=== PATIENT | female | born 1945 | race Caucasian/White ===

== ENCOUNTER 2022-12-27 17:35 | Inpatient (IN) | payer MEDICARE, SELFPAY ==
[2022-12-27] VITALS (24 sets, daily range): BP systolic 90–112; BP diastolic 41–64; PULSE 77–96; RESP 15–23; TEMP 36.6–37.1; O2SAT 90–97
--- NOTE | 2022-12-27 18:06 | W.ED.GENAD ---
Discharge Plan Disposition Patient Disposition: Admit to [facility] Condition: Stable Discharge Details Clinical Impression: Urinary tract infection Admit Date/Time: 12/27/22 21:01 Admit Provider: Hari Floyd Attending Provider: Hari Floyd Primary Care Provider: Melani Riley ED Provider: Shellie Pablo Discharge Data Discharge Date/Time-TO BE ENTERED AT DEPARTURE: 12/27/22 22:19 Medical Decision Making Presentation concerning for GI bleed. She has been given Protonix IV push liter of fluid will obtain routine lab. She was noted to have dark black stools which were heme positive. Did present to triage hypotensive and tachycardic. She denies chest pain or shortness of breath. Will obtain CBC CMP type and screen coags. We will give 1 L of normal saline keep her monitored while awaiting studies. Labs returned and show an elevated white count at 28,000 and hemoglobin of 14 Despite fluids she remains hypotensive with a systolic blood pressure in the 90s. There have been no bloody stools since her arrival and now I question whether or not she is septic possibly. I will add chest x-ray urinalysis lactic acid blood cultures to evaluate for and infection. Labs return and urine does show concern for infection. She is given ceftriaxone 2 g IV piggyback. Her case is discussed with hospitalist services and she will be admitted to the medical surgical unit for further treatment and evaluation. A repeat hemoglobin is 13, which most likely is dilutional as she has received 2 L of IV fluid. Medical Records Medical records reviewed: Yes I reviewed the patient's medical records. Lab Data Lab results reviewed: Yes I reviewed the patient's lab results. HPI General Mode of arrival: wheelchair. Date/Time Provider Initiated Documentation: 12/27/22 17:55. Limitations to Documentation: no limitations. Information obtained by: patient and family (Daughter). HPI Narrative: Is a 77-year-old female patient with a history of of DVT on chronic anticoagulation with a history of recent hospitalization at [facility] after she had multiple falls at home. Reportedly has a L4 compression fracture with right-sided radiculopathy. Her hospitalization at [facility] also included congestive heart failure with bilateral lower extremity edema. She was unable to be safely discharged home so has been at [facility] and rehab for the past week. Was rehabbing okay and then today reported dark stool that was heme positive. Hemodynamically she was initially stable at the rehab but on arrival to the emergency department she was found to be hypotensive with a systolic of 90 and a heart rate over 100. She also was found to be hypoxic with a room air sat in the high 80s. She denies any respiratory complaints cough shortness of breath no fevers no recent other illness Related Data Home Medications Medication Instructions Recorded Confirmed José Low Dose Aspirin 81 mg 81 mg PO DAILY 12/22/15 07/09/22 tablet,delayed release (aspirin) Humalog KwikPen Insulin 100 65 u subcut BID 12/22/15 07/09/22 unit/mL subcutaneous (insulin lispro) Lantus Solostar U-100 Insulin 100 60 u subcut DAILY 12/22/15 07/09/22 unit/mL (3 mL) subcutaneous pen (insulin glargine) Lasix 40 mg tablet (furosemide) 40 mg PO DAILY 12/22/15 07/09/22 ProAir HFA 90 mcg/actuation 2 puff inhalation Q6H PRN 12/22/15 07/09/22 aerosol inhaler (albuterol sulfate) Vitamin D3 Complete 18 mg iron-800 1 ea PO 12/22/15 07/09/22 mcg-150 mg tablet ([id number]-ud-gsbz-FA-herbal cmplx#190) levothyroxine 125 mcg tablet 125 mcg PO DAILY 12/22/15 07/09/22 metoprolol tartrate 50 mg tablet 75 mg PO DAILY 12/22/15 07/09/22 multivitamin 1 ea PO 12/22/15 07/09/22 simvastatin 40 mg tablet 40 mg PO DAILY 12/22/15 07/09/22 spironolactone 25 mg tablet 25 mg PO DAILY 12/22/15 07/09/22 warfarin 4 mg tablet 4 mg PO DAILY 12/22/15 07/09/22 blood sugar diagnostic (Accu-Chek #10 ea 03/05/21 07/09/22 Karo Plus test strips) blood-glucose meter #1 ea 03/05/21 07/09/22 insulin syringe-needle U-100 1 mL #10 ea 03/05/21 07/09/22 30 gauge x 1/2 (BD Insulin Syringe Ultra-Fine) fluticasone furoate 100 1 inh inhalation DAILY PRN 05/01/21 07/09/22 mcg-vilanterol 25 mcg/dose inhalation powder (Breo Ellipta) fluticasone propionate 50 50 mcg NS BID PRN 05/01/21 07/09/22 mcg/actuation nasal spray,suspension Allergies Allergy/AdvReac Type Severity Reaction Status Date / Time aspirin [From Percodan] Allergy Unverified 07/09/22 14:00 codeine Allergy Unverified 07/09/22 14:00 metformin HCl Allergy Unverified 07/09/22 14:00 [From Glucophage] nicotine Allergy Unverified 07/09/22 14:00 oxycodone HCl [From Percodan] Allergy Unverified 07/09/22 14:00 oxycodone terephthalate Allergy Unverified 07/09/22 14:00 [From Percodan] pioglitazone HCl [From Actos] Allergy Unverified 07/09/22 14:00 General Stated Complaint: GI Bleed BERTIN: 2 Review of Systems All systems reviewed & are unremarkable except as noted in HPI and below 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, 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, 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, er/pr positive, HER negatigve, post partial nastectomy 02/02/09 and AI therapy x5 years started 03/27-left mammo abn 06/01, benign bx 07/30-completed 5 yr of femara Bronchitis Congestive heart failure Depressive disorder Diarrhea Hearing impairment Neck pain Obesity osteoporosis, generalized Tobacco abuse Surgical History Amputation Left great toe, partial amputation 2005 Angioplasty Appendectomy early 1969's Cholecystectomy Extraction of cataract History of colonoscopy History of lumpectomy of left breast 2008 Partial Mastectomy Stent Tonsillectomy and adenoidectomy x2, age 3 and age 10 - tonsils grew back after first procedure Family History Father Diabetes Mother Hypertension Diabetes Social History Smoking/Tobacco Use Status: Current-Occasional Tobacco Type: cigarettes Smoking risk assessment performed?: Yes Alcohol Intake: never Drug use: Never Household members: family Housing: other Number of Children: 1 What is your relationship status?: Panel score (0-1 are the most socially isolated patients): 0 Exam Const General: cooperative, frail appearing and ill appearing Nutritional Appearance: overweight Orientation: alert, awake and oriented x3 HENMT Head: normal to inspection, normocephalic and atraumatic Mouth: moist mucous membranes abnormal (dry) Neck Neck: no JVD Chest Chest: normal inspection of the chest Resp Effort & Inspection: normal respiratory effort Auscultation: diminished lung sounds (bases) bilaterally Cardio Rate: tachycardic Rhythm: regular rhythm GI Inspection: normal to inspection and obesity Palpation: soft, not firm, no guarding and no masses Skin General skin exam: no rashes or lesions noted Neuro General: patient alert, patient awake, patient oriented x3 and no focal motor deficits Extrem General: normal to inspection and full ROM Course Vital Signs Vital signs: Vital Signs Temperature 37.1 C 12/27/22 17:48 Pulse 95 H 12/27/22 17:48 Respiratory Rate 18 12/27/22 17:48 Blood Pressure 90/47 L 12/27/22 17:48 Pulse Oximetry 92 12/27/22 17:48 Temperature 37.1 C 12/27/22 17:48 Temperature Source Skin 12/27/22 17:48 Pulse 95 H 12/27/22 17:48 Respiratory Rate 18 12/27/22 17:48 Blood Pressure 90/47 L 12/27/22 17:48 Blood Pressure Position Sitting 12/27/22 17:48 Pulse Oximetry 92 12/27/22 17:48 Oxygen Delivery Method Room Air 12/27/22 17:48 Oxygen Flow Rate 0 12/27/22 17:48 Pain Level 0 12/27/22 17:48
[2022-12-27] MEDS: Pantoprazole 40 MG VIAL 80 MG IVP (18:22)
[2022-12-27] MEDS: Normal Saline 1,000 ML 1000 ML IV (18:22)
[2022-12-27 18:34] LABS: Abs Immature Grans 0.13 10^3/uL (0.0-0.06); HCT 41.1 % (36.0-46.0); HGB 13.5 g/dL (11.2-15.7); Immature Grans % 0.5; MCH 28.5 pg (27.0-33.0); MCHC 32.8 % (32.0-36.0); MCV 87 fL (80-95); MPV 9.7 fL (8.0-11.0); RBC 4.74 10^6/uL (3.93-5.22); RDW 15.9 % (11.7-14.6)
[2022-12-27 18:38] LABS: WBC 28.09 10^3/uL (4.4-10.8)
[2022-12-27 18:48] LABS: Absolute Lymphocyte Count 2.81 10^3/uL (1.2-3.4); Absolute Monocyte Count 1.12 10^3/uL (0.1-0.8); Absolute Neutrophil Count 24.16 10^3/uL (1.2-6.7); Bands % 1
[2022-12-27 18:49] LABS: Diff Comment Manual Differential; Platelet Count 983 10^3/uL (130-400); RBC Morphology Normal
[2022-12-27 18:56] LABS: Prothrombin Time 30.2 sec (9.3-11.0)
--- NOTE | 2022-12-27 19:00 | DI.RAD_ITS ---
Exam(s) XR CHEST 2V PA LATERAL EXAM: XR CHEST 2V PA LATERAL CLINICAL HISTORY: hypoxia TECHNIQUE: 2D digital imaging was performed. COMPARISON: No exams were available for comparison FINDINGS: HEART: Normal size. Aorta: Not dilated. PULMONARY VASCULATURE: Normal. LUNGS: Mild fibrotic changes, otherwise clear. PLEURAL SPACE: No pleural effusion or pneumothorax. BONE:Unremarkable for age. IMPRESSION: No acute abnormality. DATA REPOSITORY: RADIATION DOSE DELIVERED:
[2022-12-27 19:04] LABS: ALT 13 U/L (14-59); AST 14 U/L (15-37); Alkaline Phosphatase 86 U/L (46-116); Anion Gap 9.4 mmol/L (3-11); Bilirubin, Total 0.3 mg/dL (0.2-1.0); CO2 27.6 mmol/L (21.0-32.0); CREATININE 1.9 mg/dL (0.55-1.02); Calcium 8.7 mg/dL (8.5-10.1); Chloride 97 mmol/L (98-107); Estimated GFR 26.53 (mL/min/1.73m2); Glucose 138 mg/dL (74-106); Magnesium 2.8 mg/dL (1.8-2.4); Potassium 4.7 mmol/L (3.5-5.1); Sodium 134 mmol/L (136-145); Total Protein 6.9 g/dL (6.4-8.2)
[2022-12-27 19:06] LABS: BUN 109 mg/dL (7-18)
--- NOTE | 2022-12-27 19:07 | NUR.NOTE ---
Nursing Note: Report to Rhiannon SOLOMON
--- NOTE | 2022-12-27 19:33 | DI.VRAD_ITS ---
PROCEDURE INFORMATION: Exam: XR Chest Exam date and time: 12/27/2022 7:13 PM Age: 77 years old Clinical indication: Other: Hypoxia TECHNIQUE: Imaging protocol: Radiologic exam of the chest. Views: 2 views. COMPARISON: No relevant prior studies available. FINDINGS: Tubes, catheters and devices: Monitoring wires noted. Lungs: Lungs are mildly hyperaerated. No consolidation. No vascular congestion. Pleural spaces: Unremarkable. No pleural effusion. No pneumothorax. Heart/Mediastinum: Unremarkable. No cardiomegaly. Bones/joints: Moderate arthropathy noted in the right shoulder. Degenerative changes are present in the spine. Bone mineralization appears low. IMPRESSION: No acute cardiopulmonary abnormality. Suspect chronic lung disease. Dictated and Authenticated by: Raj Osman MD. Ordering:MELL Hensley MD
[2022-12-27 20:28] LABS: Bilirubin Negative (Negative); Blood Large (Negative); Clarity Cloudy (Clear); Glucose Negative (Negative); Ketones Negative (Negative); Leukocyte Esterase Large (Negative); Nitrite Negative (Negative); Specific Gravity 1.015 (1.005-1.025); Urobilinogen 0.2 mg/dL (Up to 0.2); pH 5.5 (5-8)
[2022-12-27 20:34] LABS: Bacteria Moderate HPF (Negative); C & S Indicated? Yes; Casts Negative LPF (Negative); Crystals Negative HPF (Negative); Epithelial Cells Few HPF (Negative); Mucus Negative (Negative)
[2022-12-27 21:11] LABS: Lactate 0.8 mmol/L (0.6-1.4)
--- NOTE | 2022-12-27 21:13 | W.PM.HP.N ---
Date of service: 12/28/22 Time of Service: 00:00 Assessment and Plan Assessment and plan (1) Urinary tract infection: Status: Acute Assessment and plan: Admission diagnosis UTI, but I am not totally convinced. I agree with ceftriaxone if we can't find another reason for the elevated WBC until cultures return, but truthfully she has no UTI symptoms. (2) Diarrhea: Status: Acute Assessment and plan: She is at high risk for c dif given clindamycin, this would explain the high WBC and platelets. Interestingly, both were trending up while she was still at [facility] on 12/19 labs. C dif toxin assay ordered. (3) GI bleed: Status: Chronic Assessment and plan: SHe has two normal h/h since arriving, suggesting she has not lost significant blood. However heme + blackish stool and elevated BUN/cr ratio still raise concern of UGI bleed. Continue to monitor. At this point, I am holding warfarin but I will not reverse it unless h/h drops more significantly. (4) Hypothyroidism: Status: None Assessment and plan: Her TSH was low with Free T4 still within normal range at [facility]. Her levothyroxine was not titrated. Typically I would decrease this, but likely prodent to defer to outpatient when she isn't sick. (5) Diastolic heart failure: Status: Acute Assessment and plan: Euvolemic currently, CXR not c/w CHF. Continue outpatient diuresis. (6) Diabetes mellitus with neurological manifestations: Status: None Assessment and plan: A1c was 6.0 per [facility] d/c summary. I cut back the insulin dosing, particularly the rapid insulin was high in proportion to basal. (7) Coronary artery disease: Status: None Assessment and plan: No active symptoms of chest pain. COntinue outpatient meds. I'm not sure why she is on simvastatin rather than high intensity, but will defer to outpatient. (8) Acute on chronic renal insufficiency: Status: Acute Assessment and plan: Her creatinine on 8.3 was 1.4. Related to an acute infection? Will monitor renal function and urine output. (9) ALAN (obstructive sleep apnea): Status: Chronic Assessment and plan: home BiPAP (10) DVT prophylaxis: Status: Acute Assessment and plan: mechanical given concern for GI bleed. History of Present Illness History of Present Illness Chief Complaint: black stool, heme positive Narrative: 77 yo F anticoagulated on warfarin for history of DVT, DM, ALAN, CAD, who was in rehab at [facility] after a recent admission for HFpEF and lower extremity cellulitis who was brought to the ED by her daughter after she had a dark stool that was heme positive. She states she has has loose stools 4-5 day for the past 2-3 days with some leakage requiring a diaper. No fever/chills. She has an appetite but has not been eating because the food was not appealing. She denies any dysuria, urinary frequency, or urine incontinence. She was otherwise feeling well. She was admitted 12/06 - 12/20/22 at [facility] in [place], [place]. She was treated for LE cellulitis with clindamycin and CHF, with echocardiogram showing a preserved ejection fraction of 60%. Review of Systems Constitutional Constitutional: Denies anorexia, Denies chills, Denies fever(s), Reports lethargy and Denies weakness Eyes Eyes: Denies change in vision and Denies irritation ENT Ears, Nose, Mouth, and Throat: Denies dizziness, Denies nasal congestion, Denies nasal discharge and Denies sore throat Cardiovascular Cardiovascular: Denies palpitations and Denies orthopnea Respiratory Respiratory: Reports cough (a few days of dry cough, mild), Denies excessive phlegm production and Denies wheezing Gastrointestinal Gastrointestinal: Denies abdominal pain, Denies heartburn, Denies nausea and Denies vomiting Genitourinary Genitourinary: Denies hematuria, Denies dysuria and Denies urinary incontinence Musculoskeletal Comments: right leg hurts since fall before last admission Integumentary/Breasts Skin/Breast: Denies rash and Denies skin ulcer Neurologic Neurologic: Denies confusion, Denies dizziness, Denies sensory deficit and Denies weakness Psychiatric Psychiatric: Denies confusion and Denies mood swings Endocrine Endocrine: Denies palpitations Hematologic/Lymphatic Hematologic/Lymphatic: Denies easy bleeding Allergic/Immunologic Allergic/Immunologic: Denies wheezing 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, 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, 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, er/pr positive, HER negatigve, post partial nastectomy 02/02/09 and AI therapy x5 years started 03/27-left mammo abn 06/01, benign bx 07/30-completed 5 yr of femara Bronchitis Congestive heart failure Depressive disorder Diarrhea Hearing impairment Neck pain Obesity osteoporosis, generalized Tobacco abuse Surgical History Amputation Left great toe, partial amputation 2005 Angioplasty Appendectomy early Cholecystectomy Extraction of cataract History of colonoscopy History of lumpectomy of left breast 2007 Partial Mastectomy Stent Tonsillectomy and adenoidectomy x2, age 3 and age 10 - tonsils grew back after first procedure Family History Father Diabetes Mother Hypertension Diabetes Social History Smoking/Tobacco Use Status: Current-Occasional Tobacco Type: cigarettes Smoking risk assessment performed?: Yes Alcohol Intake: never Drug use: Never Household members: family Housing: other Number of Children: 1 What is your relationship status?: Panel score (0-1 are the most socially isolated patients): 0 Meds Allergies and Home Medications Allergies Allergy/AdvReac Type Severity Reaction Status Date / Time aspirin [From Percodan] Allergy Unverified 07/09/22 14:00 codeine Allergy Unverified 07/09/22 14:00 metformin HCl Allergy Unverified 07/09/22 14:00 [From Glucophage] nicotine Allergy Unverified 07/09/22 14:00 oxycodone HCl [From Percodan] Allergy Unverified 07/09/22 14:00 oxycodone terephthalate Allergy Unverified 07/09/22 14:00 [From Percodan] pioglitazone HCl [From Actos] Allergy Unverified 07/09/22 14:00 Home Medications Medication Instructions Recorded Confirmed Type José Low Dose Aspirin 81 mg 81 mg PO DAILY 12/22/15 07/09/22 History tablet,delayed release (aspirin) Humalog KwikPen Insulin 100 65 u subcut BID 12/22/15 07/09/22 History unit/mL subcutaneous (insulin lispro) Lantus Solostar U-100 Insulin 100 60 u subcut DAILY 12/22/15 07/09/22 History unit/mL (3 mL) subcutaneous pen (insulin glargine) Lasix 40 mg tablet (furosemide) 40 mg PO DAILY 12/22/15 07/09/22 History ProAir HFA 90 mcg/actuation 2 puff inhalation Q6H PRN 12/22/15 07/09/22 History aerosol inhaler (albuterol sulfate) Vitamin D3 Complete 18 mg iron-800 1 ea PO 12/22/15 07/09/22 History mcg-150 mg tablet (da-vo-xych-FA-herbal cmplx#190) levothyroxine 125 mcg tablet 125 mcg PO DAILY 12/22/15 07/09/22 History metoprolol tartrate 50 mg tablet 75 mg PO DAILY 12/22/15 07/09/22 History multivitamin 1 ea PO 12/22/15 07/09/22 History simvastatin 40 mg tablet 40 mg PO DAILY 12/22/15 07/09/22 History spironolactone 25 mg tablet 25 mg PO DAILY 12/22/15 07/09/22 History warfarin 4 mg tablet 4 mg PO DAILY 12/22/15 07/09/22 History blood sugar diagnostic (Accu-Chek #10 ea 03/05/21 07/09/22 History Karo Plus test strips) blood-glucose meter #1 ea 03/05/21 07/09/22 History insulin syringe-needle U-100 1 mL #10 ea 03/05/21 07/09/22 History 30 gauge x 1/2 (BD Insulin Syringe Ultra-Fine) fluticasone furoate 100 1 inh inhalation DAILY PRN 05/01/21 07/09/22 History mcg-vilanterol 25 mcg/dose inhalation powder (Breo Ellipta) fluticasone propionate 50 50 mcg NS BID PRN 05/01/21 07/09/22 History mcg/actuation nasal spray,suspension Exam Narrative Exam Narrative: GEN: Alert and oriented, pleasant and cooperative, hard of hearing. She gives a linear history. No acute distress at rest. HEENT: Head atraumatic. Conjunctiva clear, no icterus. PEERL, EOMI. no rhinorrhea. MMM, OP benign. Neck is supple with no masses or lymphadenopathy, trachea midline LUNGS: CTAB with normal effort CV: RRR with no murmurs, gallops, or rubs. ABD: +BS, soft, NT/ND EXT: no cyanosis, clubbing. Trace juan a edema more on left. MSK: No joint redness or swelling NEURO: CN 2-12 grossly intact. Normal movement of 4 extremities. Normal speech and coordination SKIN: No rashes or open wounds. hyperpigmented in shins. PSYCH: normal mood and affect Results Imaging Chest x-ray: report reviewed (No acute cardiopulmonary abnormality. Suspect chronic lung disease.) Labs 12/27/22 18:27 12/27/22 18:27 Labs: Laboratory Results - last 24 hr 12/27/22 12/27/22 12/27/22 18:27 18:27 18:27 WBC 28.09 H* RBC 4.74 Hgb 13.5 Hct 41.1 MCV 87 MCH 28.5 MCHC 32.8 RDW 15.9 H Plt Count 983 H* MPV 9.7 Immature Gran % 0.5 Neutrophils % 85.0 Band Neutrophils % 1 Lymphocytes % 10.0 Monocytes % 4.0 Eosinophils % 0.0 Basophils % 0.0 Nucleated RBC % 0.0 Absolute Neutrophils 24.16 H Absolute Lymphocytes 2.81 Absolute Monocytes 1.12 H Absolute Eosinophils 0.00 Absolute Basophils 0.00 RBC Morphology Normal PT INR VBG Lactate Sodium 134 L Potassium 4.7 Chloride 97 L Carbon Dioxide 27.6 Anion Gap 9.4 BUN 109 H* Creatinine 1.9 H Est GFR (CKD-EPI 2020) 26.53 Glucose 138 H Calcium 8.7 Magnesium 2.8 H Total Bilirubin 0.3 AST 14 L ALT 13 L Alkaline Phosphatase 86 Total Protein 6.9 Albumin 3.0 L Urine Color Urine Clarity Urine pH Ur Specific [place] Urine Protein Urine Ketones Urine Blood Urine Nitrite Urine Bilirubin Urine Urobilinogen Ur Leukocyte Esterase Urine RBC Urine WBC Ur Epithelial Cells Urine Crystals Urine Bacteria Urine Casts Urine Mucus Ur Culture Indicated? Urine Glucose Patient ABO/Rh O Positive Antibody Screen NEGATIVE 12/27/22 12/27/22 12/27/22 18:27 20:23 21:00 WBC RBC Hgb Hct MCV MCH MCHC RDW Plt Count MPV Immature Gran % Neutrophils % Band Neutrophils % Lymphocytes % Monocytes % Eosinophils % Basophils % Nucleated RBC % Absolute Neutrophils Absolute Lymphocytes Absolute Monocytes Absolute Eosinophils Absolute Basophils RBC Morphology PT 30.2 H INR 3.0 H VBG Lactate 0.8 Sodium Potassium Chloride Carbon Dioxide Anion Gap BUN Creatinine Est GFR (CKD-EPI 2020) Glucose Calcium Magnesium Total Bilirubin AST ALT Alkaline Phosphatase Total Protein Albumin Urine Color Yellow Urine Clarity Cloudy Urine pH 5.5 Ur Specific [place] 1.015 Urine Protein Negative Urine Ketones Negative Urine Blood Large H Urine Nitrite Negative Urine Bilirubin Negative Urine Urobilinogen 0.2 Ur Leukocyte Esterase Large H Urine RBC 5-10 H Urine WBC 5-10 Ur Epithelial Cells Few Urine Crystals Negative Urine Bacteria Moderate Urine Casts Negative Urine Mucus Negative Ur Culture Indicated? Yes Urine Glucose Negative Patient ABO/Rh Antibody Screen Last Vital Signs Temp 37.1 C 12/27/22 17:48 Pulse 95 H 12/27/22 17:48 Resp 18 12/27/22 17:48 BP 90/47 L 12/27/22 17:48 Pulse Ox 92 12/27/22 17:48 Time Spent Time spent with Patient: 55-74 minutes Time was spent: preparing to see the patient(eg.review tests), obtaining and/or reviewing separately otained hiistory, ordering medications,tests, procedures, referring, communicating with other health home health caregiver, indepentently interpreting results and counseling the patient
[2022-12-27] MEDS: cefTRIAXone 2 GM/50 ML BAG IVPB (21:43)
[2022-12-27 21:45] LABS: Procalcitonin < 0.1 ng/mL
--- NOTE | 2022-12-28 | DI.CT_ITS ---
Exam(s) CT RENAL COLIC WO EXAM: CT RENAL COLIC WO CLINICAL HISTORY: UTI, leukocytosis. TECHNIQUE: Imaging Protocol: Axial computed tomography images with coronal and sagittal reformatted images were created and reviewed. CONTRAST MATERIAL: Noncontrast COMPARISON: CR,XR XR CHEST 2V PA LATERAL from 12/27/2022 FINDINGS: ABDOMEN: Lung Bases: Normal where visualized. Mitral annular calcifications. Coronary artery calcifications . Liver: Normal attenuation. No measurable mass. Gallbladder and biliary tract: Status post cholecystectomy. No radiodense calculus or dilation. Pancreas: Normal density, no calcifications or inflammatory process. Spleen: Normal. Kidneys: Normal size, contour and axis. Nonobstructing stone lower pole left kidney. No obstructive uropathy. No masses seen. Adrenal glands: No masses seen. Abdominal Aorta: Abdominal portion non-dilated. Aorta and branch vessels heavily calcified. Soft tissues: Multiple calcifications and increased density seen within the left breast. Skin thicke haresh noted inferiorly. Clinical correlation recommended as to prior treatment for breast cancer. Ma mmography recommended if not previously performed recently elsewhere. Small fatty containing umbilical hernia. PELVIS: Bladder: Symmetric distention, no gross wall thickening. No evidence of stones.No visible mass. Bowel: No obstruction or bowel wall thickening. Reproductive: Unremarkable. Peritoneal cavity: No ascites, collection or mesenteric inflammatory response. Bones: Moderate compression fracture of L3. Mild retropulsion. No aggressive bony lesions. IMPRESSION: Left breast mass with calcifications in skin thickening, highly suspicious for malignancy. Mammograp hy recommended. Nonobstructing stone lower pole left kidney. Moderate L3 compression fracture. RADIATION DOSE DELIVERED: Total DLP DATA REPOSITORY: All CT scans at this facility are submitted to the National Radiology Data Registry (NRDR) Dose Index Registry (DIR) with the [employer] (ACR). RADIATION OPTIMIZATION: All CT scans at this facility use at least one of these dose optimization te chniques: automated exposure control; mA and/or kV adjustment per patient size (includes targeted exa ms where dose is matched to clinical indication); or iterative reconstruction.
[2022-12-28 01:12] LABS: C Diff PCR Negative (Negative)
[2022-12-28] MEDS: Normal Saline Flush 10 ML SYR IVP ×3 (02:44→20:07)
[2022-12-28] MEDS: Normal Saline 1,000 ML 100 ML IV ×3 (02:45→21:45)
[2022-12-28] MEDS: Levothyroxine 100 MCG TAB (06:06)
[2022-12-28] MEDS: Levothyroxine 25 MCG TAB (06:06)
[2022-12-28 06:40] LABS: Abs Immature Grans 0.21 10^3/uL (0.0-0.06); Basophils % 0.6; Eosinophils % 1.6; HCT 36.4 % (36.0-46.0); HGB 11.8 g/dL (11.2-15.7); Immature Grans % 0.8; Lymphocytes % 9.5; MCH 28.6 pg (27.0-33.0); MCHC 32.4 % (32.0-36.0); MCV 88 fL (80-95); MPV 9.8 fL (8.0-11.0); Monocytes % 5.3; Neutrophils % 82.2; RBC 4.13 10^6/uL (3.93-5.22); RDW 15.9 % (11.7-14.6); RDW-SD 51.6 fL
[2022-12-28 06:54] LABS: Absolute Basophil Count 0.17 10^3/uL (0.0-0.2); Absolute Eosinophil Count 0.45 10^3/uL (0.0-0.7); Absolute Lymphocyte Count 2.66 10^3/uL (1.2-3.4); Absolute Monocyte Count 1.48 10^3/uL (0.1-0.8); Absolute Neutrophil Count 23.01 10^3/uL (1.2-6.7)
[2022-12-28 07:15] VITALS: BP 102/60; PULSE 87; RESP 16; TEMP 36.6; O2SAT 92
[2022-12-28 07:19] LABS: Anion Gap 9.2 mmol/L (3-11); CO2 24.8 mmol/L (21.0-32.0); CREATININE 1.8 mg/dL (0.55-1.02); Calcium 8.3 mg/dL (8.5-10.1); Chloride 102 mmol/L (98-107); Estimated GFR 28.31 (mL/min/1.73m2); Glucose 131 mg/dL (74-106); Potassium 4.8 mmol/L (3.5-5.1); Sodium 136 mmol/L (136-145); TSH (W/Ref FT4) 0.87 uIU/mL (0.36-3.74)
[2022-12-28 07:31] LABS: BUN 111 mg/dL (7-18)
[2022-12-28 07:36] LABS: Hemoglobin A1C 6.4 % (<5.7)
[2022-12-28 07:42] LABS: Diff Comment Agrees w/ Instrument; Platelet Count 844 10^3/uL (130-400); RBC Morphology Normal; WBC 27.99 10^3/uL (4.4-10.8)
[2022-12-28] MEDS: Simvastatin 40 MG TAB PO (08:31)
[2022-12-28] MEDS: Insulin Aspart 300 UNITS/3 ML PEN SC ×3 (08:31→17:22)
[2022-12-28] MEDS: Spironolactone 25 MG TAB PO (08:32)
[2022-12-28] MEDS: Furosemide 40 MG TAB PO (08:32)
[2022-12-28] MEDS: Acetaminophen 325 MG TAB PO ×2 (08:38→19:11)
[2022-12-28] MEDS: Pantoprazole 40 MG VIAL IVP ×2 (08:38→20:07)
[2022-12-28 08:50] VITALS: BP 95/57
[2022-12-28] MEDS: Normal Saline 250 ML IV (09:10)
--- NOTE | 2022-12-28 09:43 | NUR.NOTE ---
Nursing Note:Patient recieved from prior shift at 0700, at this time 0943 this production underwriter noticed admission part 2 had not been done. This production underwriter was not on when this patient was admitted to the unit. Prior nurse stated that this patient didn't want a male nurse so they switched so that she could have a female doing her care.
[2022-12-28 10:22] VITALS: BP 110/62; PULSE 98
[2022-12-28 11:12] VITALS: BP 114/63; PULSE 90; RESP 16; TEMP 36.6; O2SAT 94
[2022-12-28 12:25] LABS: HCT 35.4 % (36.0-46.0); HGB 11.3 g/dL (11.2-15.7)
--- NOTE | 2022-12-28 14:30 | INITIAL_ITS ---
Date of service: 12/28/22 Time of Service: 14:32 Care Management Initial Assmt Initial Assessment REASON FOR HOSPITALIZATION:: UTI PREVIOUS FUNCTIONAL STATUS/SOCIAL/FAMILY SUPPORTS:: Adelaide is currently receiving rehab at [facility]. Her daughter Mary lives in [place], and is supportive. She requires assistance with ADLs, for which she has support at the rehab facility. CURRENT FUNCTIONAL STATUS:: Adelaide was lying in bed when CM met with her. She stated that she is feeling ok. She stated that she has not been at [facility] long, and she has a meeting with [facility] staff and her family on Friday at 11am. Per report, her stools are heme positive. Her WBC is elevated at 27.99, currently on IV abx. PT has been consulted. CM will continue to follow. ADVANCE DIRECTIVES:: Not on file; CM will offer forms. Has patient been provided with info about the portal/API?: Yes Did the patient sign up for the portal?: No CODE STATUS:: Full Code INSURANCE COVERAGE / FINANCIAL ISSUES:: [facility]/ AARP supplemental CURRENT HOME/COMMUNITY SERVICES/EQUIPMENT:: Adelaide is currently receiving rehab at [facility]. PRIMARY CARE PHYSICIAN:: Melani Riley POTENTIAL DISCHARGE NEEDS:: Coordinated return to facility PATIENT/FAMILY EDUCATION NEEDS:: Review discharge instructions and limitations, discussion of self care needs including ask me three. ANTICIPATED BARRIERS TO DISCHARGE:: None identified. TRANSPORTATION:: via facility w/c van PLAN:: Anticipate Adelaide will return to [facility] once medically cleared. She will transport via facility w/c van. She will follow up with her PCP and discharge plan of care. CM will continue to follow. 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, 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, 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, er/pr positive, HER negatigve, post partial nastectomy 02/02/09 and AI therapy x5 years started 03/27-left mammo abn 06/01, benign bx 07/30-completed 5 yr of femara Bronchitis Congestive heart failure Depressive disorder Diarrhea Hearing impairment Neck pain Obesity osteoporosis, generalized Tobacco abuse Surgical History Amputation Left great toe, partial amputation 2005 Angioplasty Appendectomy early Cholecystectomy Extraction of cataract History of colonoscopy History of lumpectomy of left breast 2007 Partial Mastectomy Stent Tonsillectomy and adenoidectomy x2, age 3 and age 10 - tonsils grew back after first procedure Family History Father Diabetes Mother Hypertension Diabetes Social History Smoking/Tobacco Use Status: Current-Occasional Tobacco Type: cigarettes Smoking risk assessment performed?: Yes Alcohol Intake: never Drug use: Never Household members: family Housing: other Number of Children: 1 What is your relationship status?: Panel score (0-1 are the most socially isolated patients): 0
[2022-12-28 15:22] VITALS: BP 105/65; PULSE 90; RESP 16; TEMP 36.5; O2SAT 93
--- NOTE | 2022-12-28 17:34 | DI.VRAD_ITS ---
PROCEDURE INFORMATION: Exam: CT Abdomen And Pelvis Without Contrast Exam date and time: 12/28/2022 4:52 PM Age: 77 years old Clinical indication: Other: UTI, leukocytosis TECHNIQUE: Imaging protocol: Computed tomography of the abdomen and pelvis without contrast. Radiation optimization: All CT scans at this facility use at least one of these dose optimization techniques: automated exposure control; mA and/or kV adjustment per patient size (includes targeted exams where dose is matched to clinical indication); or iterative reconstruction. COMPARISON: CR XR CHEST 2V PA LATERAL 12/27/2022 7:13 PM FINDINGS: Limitations: Lack of IV contrast limits evaluation of organs. Heart: Mitral valve annulus calcifications. Liver: Normal. No mass. Gallbladder and bile ducts: The gallbladder is absent. Pancreas: Normal. No ductal dilation. Spleen: Normal. No splenomegaly. Adrenal glands: Left adrenal nodule 23 mm. Eleven Hounsfield units. Kidneys and ureters: Left nephrolithiasis. Stomach and bowel: Unremarkable. No obstruction. No mucosal thickening. Appendix: No evidence of appendicitis. Intraperitoneal space: Unremarkable. No free air. No significant fluid collection. Vasculature: Atherosclerosis changes of the abdominal aorta and iliac arteries. No aneurysm. Lymph nodes: Unremarkable. No enlarged lymph nodes. Urinary bladder: No urinary bladder calculi. Reproductive: atrophic uterus. No adnexal mass. Bones/joints: Unremarkable. No acute fracture. Soft tissues: Calcified left breast mass measuring 3.9 cm. Fat containing umbilical hernia. IMPRESSION: 1. Left nephrolithiasis. 2. Left breast mass with calcifications. Follow-up mammograms are recommended. 3. Left adrenal nodule. Probable adenoma. Dictated and Authenticated by: Dieudonne Weems MD. Ordering:MELL Hensley MD
--- NOTE | 2022-12-28 17:49 | NUR.NOTE ---
Nursing Note: Med Rec recieved from [facility], upon filling out the med rec I found that there was many dose changes and many more meds on med rec than we originally had on file. Med rec was given to charge nurse who brought it to the physician, who stated that the nurse practioner will deal with it tomorrow during the day.
[2022-12-28] MEDS: Benzonatate 100 MG CAP PO (21:45)
[2022-12-28] MEDS: Insulin Glargine 300 UNITS/3 ML PEN 50 UNITS SC (22:16)
[2022-12-28 22:59] VITALS: BP 162/78; PULSE 106; RESP 16; TEMP 36.5; O2SAT 91
[2022-12-29] MEDS: Levothyroxine 125 MCG TAB PO (05:56)
[2022-12-29 06:10] VITALS: BP 112/70; PULSE 95; RESP 16; TEMP 36.5; O2SAT 92
[2022-12-29 06:30] LABS: Absolute Basophil Count 0.16 10^3/uL (0.0-0.2); Absolute Lymphocyte Count 2.47 10^3/uL (1.2-3.4); Absolute Monocyte Count 1.14 10^3/uL (0.1-0.8); Basophils % 0.8; Eosinophils % 3.1; HCT 33.6 % (36.0-46.0); Immature Grans % 0.5; Lymphocytes % 12.2; MCH 28.6 pg (27.0-33.0); MCHC 32.7 % (32.0-36.0); MCV 88 fL (80-95); Monocytes % 5.6; Neutrophils % 77.8; RBC 3.84 10^6/uL (3.93-5.22); RDW 15.9 % (11.7-14.6); RDW-SD 50.7 fL; WBC 20.27 10^3/uL (4.4-10.8)
[2022-12-29 06:34] LABS: Absolute Eosinophil Count 0.63 10^3/uL (0.0-0.7); Absolute Neutrophil Count 15.77 10^3/uL (1.2-6.7)
[2022-12-29 06:36] LABS: Platelet Count 778 10^3/uL (130-400)
[2022-12-29 06:45] LABS: BUN 61 mg/dL (7-18); CREATININE 1.2 mg/dL (0.55-1.02); Calcium 8.3 mg/dL (8.5-10.1); Chloride 106 mmol/L (98-107); Estimated GFR 46.05 (mL/min/1.73m2); Glucose 125 mg/dL (74-106); Potassium 4.1 mmol/L (3.5-5.1); Sodium 141 mmol/L (136-145)
[2022-12-29] MEDS: Simvastatin 40 MG TAB PO (08:00)
[2022-12-29] MEDS: Metoprolol CR 50 MG TABCR 12.5 MG PO (08:00)
[2022-12-29] MEDS: Furosemide 40 MG TAB PO (08:01)
[2022-12-29] MEDS: Spironolactone 25 MG TAB PO (08:01)
[2022-12-29] MEDS: Pantoprazole 40 MG VIAL IVP ×2 (08:01→21:31)
[2022-12-29] MEDS: Acetaminophen 325 MG TAB PO ×2 (08:05→21:31)
--- NOTE | 2022-12-29 08:48 | IN_ITS ---
Date of service: 12/29/22 Time of Service: 08:25 PT Notes Visit Reasons: Urinary tract infection Inpatient Physical Therapy Evaluation Date: 12/29/22 Referring Doctor: Shellie Pablo PT Orders: PT CONSULT: Non-urgent Precautions: standard, fall risk, [place] Patient Profile/Admitting Diagnosis: 77 y o female presented to ER yesterday via daughter from [facility] due to dark stool that was heme positive, and diarrhea for subsequent days prior. She had only been a resident of [facility] since 12/20/22 - normally independently living prior to [facility] admission. She was admitted 12/06 - 12/20/22 at [facility] in [place], [place].? She was treated for LE cellulitis with clindamycin and CHF. PMHX:All Active Problems?(Updated 12/28/22 @ 01:10 by Hari Floyd) DVT prophylaxis (Acute) Acute on chronic renal insufficiency (Acute) GI bleed (Chronic) Diarrhea (Acute) Urinary tract infection (Acute) Conductive hearing loss, external ear (Acute) Impairment of speech discrimination (Acute) Sensorineural hearing loss, bilateral (Acute) Impacted cerumen, right ear (Acute) Depression (Chronic) Morbid obesity (Acute) Diastolic heart failure (Acute) ALAN (obstructive sleep apnea) (Chronic) Moderate COPD (chronic obstructive pulmonary disease) (Acute) Medical History? 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 Amputation Left great toe, partial amputation 2006Angioplasty Appendectomy early 1969'sCholecystectomy Extraction of cataract History of colonoscopy History of lumpectomy of left breast 2008Partial Mastectomy Stent Tonsillectomy and adenoidectomy x2, age 3 and age 10 - tonsils grew back after first procedure Social History/Home Situation: Patient reports she lived alone in a private apartment, she had 2 stairs to enter with a rail. She was driving. She lived independently. Her brief reporting suggests a local, supportive daughter nearby. She had only been a [facility] Since 12/20 while recovery from her hospital stay as noted above. Current Functional Limitations: Limited in ambulation distance beyond 20 ft due to pain in R hip, using RW which - she uses a rollator at baseline. Equipment Owned/DME: Rollator Subjective: C/o pain in R groin, pain as migrated around her hip for 7 weeks. She had onset of hip pain after a fall in her bathroom about 6-7 weeks ago (2 weeks before [facility] admission). Lying flat is the only thing that alleviates her pain, sitting or standing aggravates pain. Objective: General Observation: Lying almost flat in hospital bed, IV R cubitol fossa. Resolving redness lower L LE, likely due to recently noted cellulitis (of which patient does not recall she had). Mental Status: A & O x 3 Pain: 6/10 with sitting R hip. 7/10 R hip with attempt of standing and walking Vital Signs: Stable per nursing records ROM: Right Upper Extremity: ~ 110 deg of flex, scapular plane, and abd ability. Elbows, wrist, and digits grossly WNL. Shoulder hike with attempt of active elevation of shoulder. Left Upper Extremity: ~ 110 deg of flex, scapular plane, and abd ability. Elbows, wrist, and digits grossly WNL. Right Lower Extremity: PROM of R hip achieves 120 deg flex but with pain at end range, ER 45 deg, IR 20 deg. No pain with rotation. Knee and ankle WNL. Active movement limited to 90 deg hip flex due to pain, otherwise WNL Left Lower Extremity: WNL, passive and active. Strength: Right Upper Extremity: B taylor mobility grossly 4-/5 all planes, otherwise grossly 4/5 throughout Left Upper Extremity: B taylor mobility grossly 4-/5 all planes, otherwise grossly 4/5 throughout Right Lower Extremity: R hip flex 3/5 due to pain. Knee, ankle 4+/5 Left Lower Extremity: Grossly 4+/5 throughout Sensation: Intact Bed Mobility/Transfers: Independent with supine to EOB, EOB to supine - bed flat Independent with use of trapeze to reposition in bed - bed flat STS and stand to sit distant supervision with RW 20 ft of ambulation RW with CG due to R hip pain Gait: RW, normal stride length, requires CG due to hip pain on Rt, limited to 20 ft due to pain Balance: Static Sitting: Good Dynamic Sitting: Good Static Standing: Good with RW Dynamic Standing: Good with RW Stage 4 Balance Test Time (seconds) Feet together 10 sec Partial tandem 5 sec Tandem Unable One foot Unable Special Tests: Mobility Limitations Standardized Measure [facility] AM-PAC 6 clicks Basic Mobility Inpatient Short Form:28% disability Informed Consent/Education: Patient instructed in purpose of PT consult and plan of care. Assessment: Patient is a 77 year old female referred to physical therapy services to limit functional mobility decline, while being managed for questionable UTI and GI bleed, in setting of CHF. She is also c/o R hip pain since a mechanical fall about 6-7 weeks ago, which seems to be the primary limitation to her ability to safely functional at this time. She is actually presenting with independent ability to transfer, perform bed mobility activities, with her impairment of R hip pain, painful ROM, and R LE strength deficit limiting her ability to perform and tolerate functional distance am bulation. She is dependent of RW, which is her baseline. Further investigation into R hip has been initiated per patient report, but not yet documented in EMR - so my professional recommendation is to proceed with proper imaging or ortho consultation of this matter. She requires skilled PT to improve ambulation tolerance, and strength of R hip to allow for functional ambulation tolerance, and then return home at premorbid independent level ability seems appropriate given her independent ability to perform bed mobility and transfers otherwise. Patient is assessed as a Moderate [id number] complexity based on the following: History: See comorbdities Examination: See assessment Presentation: Evolving Decision Making: moderate Goals: Goals X1 week Sit-Supine independent without trapeze Gait 50 ft with rollator, independent Stairs 2 with rail, distant supervision Independent with home exercise program Plan of Care/Treatment Plan: 1-2x/day, 7 days/week x 1 week. Plan of care has been reviewed with the SLOT FLOORPERSON providing the service under Physical Therapy direction. Initiate Physical Therapy intervention for strengthening, bed mobility, transfers, gait, stairs, balance training, use of assistive device. DISCHARGE RECOMMENDATIONS: SNF for continued rehabilitation or family supervised return home with HHPT TREATMENT CODE/TIME: 30 min direct and total, 8:25-8:55, [id number]
[2022-12-29] MEDS: cefTRIAXone 1 GM/50 ML BAG IVPB (12:23)
[2022-12-29] MEDS: Insulin Aspart 300 UNITS/3 ML PEN SC (12:24)
[2022-12-29 15:00] VITALS: BP 98/52; PULSE 89; RESP 18; TEMP 36.7; O2SAT 93
--- NOTE | 2022-12-29 15:39 | PGE_ITS ---
Date of Service Date of service: 12/29/22 Time of Service: 15:39 Assessment and Plan Assessment and plan (1) Urinary tract infection: Status: Acute Assessment and plan: day 2 ceftriaxone while awaiting culture reports (2) Diarrhea: Status: Acute Assessment and plan: C dif toxin assay negative (3) GI bleed: Status: Chronic Assessment and plan: stable h/h at 11/33 after IV fluids suggesting she has not lost significant blood. However heme + blackish stool and elevated BUN/cr ratio still raise concern of UGI bleed. Continue to monitor. continue to hold warfarin (4) Hypothyroidism: Status: None Assessment and plan: Her TSH was low with Free T4 still within normal range at [facility]. Her levothyroxine was not titrated. defer to outpatient when she isn't sick. (5) Diastolic heart failure: Status: Acute Assessment and plan: Euvolemic currently, CXR not c/w CHF. Continue outpatient diuresis. (6) Diabetes mellitus with neurological manifestations: Status: None Assessment and plan: A1c was 6.0 per [facility] d/c summary. continue reduced insulin dosing, particularly the rapid insulin was high in proportion to basal. (7) Coronary artery disease: Status: None Assessment and plan: No active symptoms of chest pain. COntinue outpatient meds. question simvastatin rather than high intensity, but will defer to outpatient. (8) Acute on chronic renal insufficiency: Status: Acute Assessment and plan: Her creatinine on 12/19 was 1.4, now 2.1 on admission, down to 1.2 today after IV hydration will stop IV fluids continue to monitor renal function and urine output. avoid nephrotoxic drugs (9) ALAN (obstructive sleep apnea): Status: Chronic Assessment and plan: home BiPAP (10) DVT prophylaxis: Status: Acute Assessment and plan: mechanical given concern for GI bleed. discussed with DR Shabazz. Subjective Subjective Patient reports: no new complaints, feels better, tolerating liquids well, tolerating a regular diet and afebrile; denies shortness of breath Exam Const General: cooperative, comfortable and no acute distress Nutritional Appearance: overweight Orientation: alert, awake and oriented x3 HENMT Head: normal to inspection, normocephalic and atraumatic Mouth: moist mucous membranes abnormal (dry) Neck Neck: no JVD Chest Chest: normal inspection of the chest Resp Effort & Inspection: normal respiratory effort Auscultation: diminished lung sounds (bases) bilaterally Cardio Rate: tachycardic Rhythm: regular rhythm GI Inspection: normal to inspection and obesity Palpation: soft, not firm, no guarding and no masses Skin General skin exam: no rashes or lesions noted Neuro General: patient alert, patient awake, patient oriented x3 and no focal motor deficits Extrem General: normal to inspection and full ROM Objective Last Vital Signs Temp 36.5 C 12/29/22 06:10 Pulse 95 H 12/29/22 06:10 Resp 16 12/29/22 06:10 BP 112/70 12/29/22 06:10 Pulse Ox 92 12/29/22 06:10 Laboratory Results - last 24 hr 12/29/22 12/29/22 06:01 06:01 WBC 20.27 H RBC 3.84 L Hgb 11.0 L Hct 33.6 L MCV 88 MCH 28.6 MCHC 32.7 RDW 15.9 H Plt Count 778 H* MPV 10.0 Immature Gran % 0.5 Neutrophils % 77.8 Lymphocytes % 12.2 Monocytes % 5.6 Eosinophils % 3.1 Basophils % 0.8 Nucleated RBC % 0.0 Absolute Neutrophils 15.77 H Absolute Lymphocytes 2.47 Absolute Monocytes 1.14 H Absolute Eosinophils 0.63 Absolute Basophils 0.16 Sodium 141 Potassium 4.1 Chloride 106 Carbon Dioxide 25.0 Anion Gap 10.0 BUN 61 H Creatinine 1.2 H Est GFR (CKD-EPI 2020) 46.05 Glucose 125 H Calcium 8.3 L Time Spent with Patient Time Spent with Patient: 25-34 minutes Time was spent: preparing to see the patient(eg.review tests), ordering medications,tests, procedures, referring, communicating with other health insurance healthcare consultant, indepentently interpreting results, counseling the patient and care coordination
[2022-12-29] MEDS: Normal Saline Flush 10 ML SYR IVP (21:31)
[2022-12-29] MEDS: Insulin Glargine 300 UNITS/3 ML PEN 27 UNITS SC (21:32)
[2022-12-29] MEDS: Benzonatate 100 MG CAP PO (21:35)
[2022-12-29 22:56] VITALS: BP 157/74; PULSE 92; RESP 18; TEMP 36.6; O2SAT 93
[2022-12-30] MEDS: Levothyroxine 125 MCG TAB PO (05:30)
[2022-12-30 05:36] VITALS: BP 159/81; PULSE 100; RESP 16; TEMP 35.7; O2SAT 93
[2022-12-30] MEDS: Pantoprazole 40 MG VIAL IVP (07:51)
[2022-12-30] MEDS: Spironolactone 25 MG TAB PO (07:51)
[2022-12-30] MEDS: Furosemide 40 MG TAB PO (07:52)
[2022-12-30] MEDS: Metoprolol CR 50 MG TABCR 12.5 MG PO (07:52)
[2022-12-30] MEDS: Simvastatin 40 MG TAB PO (07:52)
--- NOTE | 2022-12-30 10:25 | W.PM.DS.N ---
Date of service: 12/30/22 Time of Service: 10:25 DS: Diagnosis Discharge Diagnosis (1) Urinary tract infection: Status: Acute Asessment and Plan: Urine growing E. coli which is sensitive to the cephalosporins was treated in the hospital with ceftriaxone will be down stepped to cefpodoxime to complete her course. (2) GI bleed: Status: Chronic Asessment and Plan: Hemoglobin and hematocrit had been followed while hospitalized initial drop from 14-11 thought to be dilution, she has been stable at 11 with no evidence of active bleeding. She should follow-up outpatient with general surgery for potential endoscopy. She should continue Protonix twice daily. Her aspirin and warfarin have been placed on hold and will defer to outpatient team when to resume (3) Hypothyroidism: Status: None Asessment and Plan: Has been maintained on her levothyroxine (4) Diastolic heart failure: Status: Acute Asessment and Plan: Maintained on home diuretic dose no exacerbation (5) Diabetes mellitus with neurological manifestations: Status: None Asessment and Plan: Blood sugars have been well managed (6) Coronary artery disease: Status: None Asessment and Plan: Stable (7) Acute on chronic renal insufficiency: Status: Resolved Asessment and Plan: Resolved with IV hydration and creatinine now down to 1.2 (8) ALAN (obstructive sleep apnea): Status: Chronic Asessment and Plan: Continue BiPAP as previously directed (9) Left breast lump: Status: Acute Asessment and Plan: Incidental finding on CAT scan: Left breast mass with calcifications in skin thickening, highly suspicious for malignancy.? Mammography recommended. (10) Compression fracture of L3 vertebra: Status: Acute Asessment and Plan: Present on arrival and stable continue pain management and physical therapy she will return to [facility] for inpatient rehabilitation Discharge Plan Disposition Patient Disposition: Home Condition: Stable Discharge Details Reason For Visit: UTI Admit Date/Time: 12/27/22 21:01 Admit Provider: Hari Floyd Attending Provider: Hari Floyd Primary Care Provider: Melani Riley Home Meds and New Rx's Prescriptions: New cefpodoxime 200 mg tablet 200 mg PO BID Qty: 14 0RF Rx Instructions: must administer with a meal/food pantoprazole 40 mg tablet,delayed release (DR/EC) 40 mg PO BID Qty: 1 0RF Continued furosemide [Lasix] 40 MG tablet 40 mg PO DAILY spironolactone 25 MG tablet 25 mg PO DAILY simvastatin 40 MG tablet 40 mg PO DAILY levothyroxine 125 MCG tablet 125 mcg PO DAILY metoprolol tartrate 50 MG tablet 75 mg PO DAILY albuterol sulfate [ProAir HFA] 8.5 GM HFA aerosol inhaler 2 puff Inhalation Q6H PRN multivitamin 1 EACH capsule 1 ea PO insulin lispro [Humalog KwikPen Insulin] 100 UNIT/1 ML insulin pen 65 u Sub-Q BID Rx Instructions: in am and pm insulin glargine [Lantus Solostar U-100 Insulin] 100 UNIT/1 ML insulin pen 60 u Sub-Q DAILY Vitamin D3 Complete 1 EACH tablet 1 ea PO (DME) Accu-Chek Karo Plus test strp Strip See Rx Instructions .ROUTE .MEDSUPPLY Qty: 10 Rx Instructions: As directed (DME) blood-glucose meter Misc See Rx Instructions .ROUTE .MEDSUPPLY Qty: 1 Rx Instructions: As directed (DME) insulin syringe-needle U-100 [BD Insulin Syringe Ultra-Fine] 1 mL 30 gauge x 1/2 syringe See Rx Instructions .ROUTE .MEDSUPPLY Qty: 10 Rx Instructions: As directed fluticasone furoate-vilanterol [Breo Ellipta] 100-25 mcg/dose blister with device 1 inh inhalation DAILY PRN fluticasone propionate 50 mcg/actuation spray,suspension 50 mcg NS BID PRN Held aspirin [José Low Dose Aspirin] 81 MG tablet,delayed release (DR/EC) 81 mg PO DAILY Hold Instructions: until discussed with outpatient team warfarin 4 MG tablet 4 mg PO DAILY Hold Instructions: until discussed with outpatient team Discharge Instructions Instructions: Gastrointestinal Bleeding (DC), Urinary Tract Infection in Women (DC) Stand Alone Forms: Nursing Discharge Form Referrals: Radha Tapia MD [ [facility] STAFF PHYSICIAN] - 01/06/23 11:00 am Melani Riley [Primary Care Provider] - 01/03/23 1:40 pm Activity:: Activity as Tolerated Equipment/Supplies:: No Equipment Needed Diet:: Carb Counting Discharge Orders Discharge Orders: Discharge Order (Routine); Ordered 12/30/22 Ordered By: Shellie Pablo DS: Summary Time Spent with Patient providing and/or coordinating discharge services: Greater than 30 minutes Status at Discharge Functional status at discharge: uses cane/walker Overall status at discharge: patient is progressing back to baseline Mental Status: mental status grossly normal Speech and Movement: speech and movement normal Mood: congruent mood Affect: normal affect Exam Const General: cooperative, comfortable and no acute distress Nutritional Appearance: overweight Orientation: alert, awake and oriented x3 HENMT Head: normal to inspection, normocephalic and atraumatic Mouth: moist mucous membranes abnormal (dry) Neck Neck: no JVD Chest Chest: normal inspection of the chest Resp Effort & Inspection: normal respiratory effort Auscultation: diminished lung sounds (bases) bilaterally Cardio Rate: regular rate Rhythm: regular rhythm GI Inspection: normal to inspection and obesity Palpation: soft, not firm, no guarding and no masses Skin General skin exam: no rashes or lesions noted Neuro General: patient alert, patient awake, patient oriented x3 and no focal motor deficits Extrem General: normal to inspection and full ROM Psych Mental Status: mental status grossly normal Speech and Movement: speech and movement normal Mood: congruent mood Affect: normal affect DS: Data Vitals/I&O Vitals and I&O: Vital Signs Temperature 35.7 C L 12/30/22 05:36 Temperature Source Tympanic 12/30/22 05:36 Pulse 100 H 12/30/22 05:36 Pulse Rhythm Regular 12/30/22 08:00 Respiratory Rate 16 12/30/22 05:36 Respiratory Effort Normal, Non-Labored 12/30/22 08:00 Respiratory Depth Normal 12/30/22 08:00 Respiratory Pattern Normal 12/30/22 08:00 Blood Pressure 159/81 H 12/30/22 05:36 Blood Pressure Position Sitting 12/27/22 17:48 Pulse Oximetry 93 12/30/22 05:36 Oxygen Delivery Method Room Air 12/30/22 05:36 Oxygen Flow Rate 2 12/30/22 07:59 Pain Level 7 12/29/22 21:31 Intake & Output 12/29/22 12/29/22 12/30/22 11:59 23:59 11:59 Intake Total 410 / 1460 1050 / 1460 250 / 250 Output Total 1200 / 3100 1900 / 3100 950 / 950 Balance -790 / -1640 -850 / -1640 -700 / -700 Weight 85.6 kg 85 kg Intake: IV 10 1060 1050 / 1060 10 Oral 400 / 400 240 / 240 Output: Urine 1200 / 3100 1900 / 3100 950 / 950 Other: Urine Color Yellow Yellow Yellow Urine Appearance Clear Clear Clear Urine Odor Normal Normal Normal Comment commode with toilet insert. Stool Size Small Stool Characteristics Soft Formed Voiding Methods Bedside Commode Bedside Commode Bedside Commode Data Completed and Pending Labs on day of discharge: Preliminary micro results at discharge 12/27/22 21:20 Blood Culture - Preliminary Blood Staph Sp., Not Aureus 12/27/22 21:29 Blood Culture - Preliminary Blood NO GROWTH 48 HOURS PFSH All Active Problems (Updated 12/30/22 @ 12:23 by Shellie Pablo NP) Compression fracture of L3 vertebra (Acute) Left breast lump (Acute) DVT prophylaxis (Acute) GI bleed (Chronic) Diarrhea (Acute) Urinary tract infection (Acute) Conductive hearing loss, external ear (Acute) Impairment of speech discrimination (Acute) Sensorineural hearing loss, bilateral (Acute) Impacted cerumen, right ear (Acute) Depression (Chronic) Morbid obesity (Acute) Diastolic heart failure (Acute) ALAN (obstructive sleep apnea) (Chronic) Moderate COPD (chronic obstructive pulmonary disease) (Acute) Medical History 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, 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, 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, er/pr positive, HER negatigve, post partial nastectomy 02/02/09 and AI therapy x5 years started 03/27-left mammo abn 06/01, benign bx 07/30-completed 5 yr of femara Bronchitis Congestive heart failure Depressive disorder Diarrhea Hearing impairment Neck pain Obesity osteoporosis, generalized Tobacco abuse Surgical History Amputation Left great toe, partial amputation 2005 Angioplasty Appendectomy early 1969's Cholecystectomy Extraction of cataract History of colonoscopy History of lumpectomy of left breast 2008 Partial Mastectomy Stent Tonsillectomy and adenoidectomy x2, age 3 and age 10 - tonsils grew back after first procedure Family History Father Diabetes Mother Hypertension Diabetes Social History Smoking/Tobacco Use Status: Current-Occasional Tobacco Type: cigarettes Smoking risk assessment performed?: Yes Alcohol Intake: never Drug use: Never Household members: family Housing: other Number of Children: 1 What is your relationship status?: Panel score (0-1 are the most socially isolated patients): 0 Time Spent with Patient Time Spent with Patient: 45-69 minutes Time was spent: preparing to see the patient(eg.review tests), ordering medications,tests, procedures, indepentently interpreting results and care coordination
--- NOTE | 2022-12-30 11:18 | NUR.NOTE ---
Called [phone] to give report to [email or web address]@ [phone]. Report was given & all questions & or concerns were addressed. An ETA was given to the RN. Report sheet was completed & given to the unit sect. Nursing Note:
[2022-12-30] MEDS: cefTRIAXone 1 GM/50 ML BAG IVPB (11:37)
--- NOTE | 2022-12-30 12:16 | RESPIRATORY ---
RT discusses with patient concerning which DME her PAP device and supplies come from. Patient's daughter stated the machine came from [facility] over five years ago and she's currently is not receiving any months supplies. RT called [facility] with daughter name and contact numbers in order for the DME to speak to her along with document the daughter on the patients HIPPA form. Patient uses an [id number] ASV Auto EPAP min 9/max 15, PS min 5/max 15 with 2L O2 bled into the machine. The patient uses an AirTouch F20 FFM size Medium with device, DME is [facility].
[2022-12-30] MEDS: Insulin Aspart 300 UNITS/3 ML PEN SC (12:36)
--- NOTE | 2022-12-30 13:45 | NUR.NOTE ---
1340 Patient was P/U by transport to be transferred to SNF. All of belongings were taken with staff. Nursing Note:
--- NOTE | 2022-12-30 14:11 | CMDISCH_ITS ---
Date of service: 12/30/22 Time of Service: 14:11 LACE Index Scoring Tool Questions: Length of Stay (in days): 3 Was the patient admitted via the E.D.?: Yes Comorbidities: Diabetes w/o Complication and Chronic Pulmonary Disease E.D. Visits: 0 Answers: Total Score: 9 Risk of Readmission: Low Risk Care Management Discharge Plan Reason for Hospitalization: UTI Discharge Plan: Adelaide returned to [facility], where she will continue her rehab stay. She was transported via facility w/c van, coordinated by CM. She will follow up with her PCP and discharge plan of care. Patient/Family Education Needs: Review discharge instructions and limitations, discussion of self care needs including ask me three. Services Needed at Discharge: Nursing Home Facility ([facility], return) and Transportation (facility w/c van)
--- NOTE | 2022-12-31 11:12 | INDS_ITS ---
PT Notes Visit Reasons: Urinary tract infection Inpatient Physical Therapy Discharge Summary Date: 12/31/22 Dates of Service: 12/29/22 through 12/30/22 This is a clinical summary of care provided for the duration of dates listed above. No charge was made in the completion of this documentation. Patient was seen for acute care PT evaluation only as discharged from hospital the following day once deemed medically stable by physician. Refer to initial evaluation on 12/29/22 for functional status at time patient was seen. Assessment: Patient discharged by attending physician and [facility] Discharge/Plan: SNF Please refer to patient physical therapy initial evaluation, treatment and/or progress notes for a summary of physical therapy care provided through dates of service listed above.
== END 2022-12-30 13:39 | disposition home or self-care (01) | DRG 690 ==
LOC: ER 22:20 → MS 22:22
PROVIDERS: Family Medicine; Admitting Provider Family Medicine; Emergency Provider Nurse Practitioner Acute Care; PCP Internal Medicine; Visit Provider Family Medicine
DX: N39.0 Urinary tract infection, site not specified (principal); S32.030A Wedge compression fracture of third lumbar vertebra, initial encounter for closed fracture; I50.30 Unspecified diastolic (congestive) heart failure; I13.0 Hypertensive heart and chronic kidney disease with heart failure and stage 1 through stage 4 chronic kidney disease, or unspecified chronic kidney disease; N17.9 Acute kidney failure, unspecified; E03.9 Hypothyroidism, unspecified; I25.10 Atherosclerotic heart disease of native coronary artery without angina pectoris; N18.9 Chronic kidney disease, unspecified; G47.33 Obstructive sleep apnea (adult) (pediatric); Z79.01 Long term (current) use of anticoagulants; Z86.718 Personal history of other venous thrombosis and embolism; R29.6 Repeated falls; H90.3 Sensorineural hearing loss, bilateral; J44.9 Chronic obstructive pulmonary disease, unspecified; F32.A Depression, unspecified; Z85.3 Personal history of malignant neoplasm of breast; E66.9 Obesity, unspecified; M81.0 Age-related osteoporosis without current pathological fracture; Z68.34 Body mass index [BMI] 34.0-34.9, adult; F17.210 Nicotine dependence, cigarettes, uncomplicated; R19.7 Diarrhea, unspecified; E11.40 Type 2 diabetes mellitus with diabetic neuropathy, unspecified; R19.5 Other fecal abnormalities; B96.20 Unspecified Escherichia coli [E. coli] as the cause of diseases classified elsewhere; N63.0 Unspecified lump in unspecified breast
CPT/HCPCS: 36415; 80048; 80053; 84145; 86850; 86900; 86901; 87040; 87077; 87493; 96361; 96365; 96375; 97162; 99285; 71046; 74176; 81003; 81015; 83036; 83605; 83735; 84443; 85014; 85018; 85025; 85610; 87086; 87186; 99233; 99239; J0696

== ENCOUNTER 2022-12-27 18:29 | Outpatient (REF) | payer MEDICARE, SELFPAY ==
[2022-12-27 14:46] LABS: Abs Immature Grans 0.22 10^3/uL (0.0-0.06); Absolute Eosinophil Count 0.22 10^3/uL (0.0-0.7); Basophils % 0.7; Eosinophils % 0.8; HCT 44.7 % (36.0-46.0); HGB 14.4 g/dL (11.2-15.7); Immature Grans % 0.8; Lymphocytes % 5.7; MCH 28.3 pg (27.0-33.0); MCHC 32.2 % (32.0-36.0); MCV 88 fL (80-95); MPV 9.9 fL (8.0-11.0); Monocytes % 3.2; Neutrophils % 88.8; RBC 5.09 10^6/uL (3.93-5.22); RDW 15.9 % (11.7-14.6); RDW-SD 51.2 fL
[2022-12-27 14:50] LABS: ALT 18 U/L (14-59); AST 21 U/L (15-37); Albumin 3.2 g/dL (3.4-5.0); Alkaline Phosphatase 92 U/L (46-116); Anion Gap 5.8 mmol/L (3-11); Bilirubin, Total 0.4 mg/dL (0.2-1.0); CO2 32.2 mmol/L (21.0-32.0); CREATININE 2.1 mg/dL (0.55-1.02); Calcium 8.9 mg/dL (8.5-10.1); Chloride 94 mmol/L (98-107); Estimated GFR 23.53 (mL/min/1.73m2); Glucose 159 mg/dL (74-106); Potassium 4.9 mmol/L (3.5-5.1); Sodium 132 mmol/L (136-145); Total Protein 7.4 g/dL (6.4-8.2)
[2022-12-27 15:04] LABS: Absolute Basophil Count 0.19 10^3/uL (0.0-0.2); Absolute Lymphocyte Count 1.56 10^3/uL (1.2-3.4); Absolute Monocyte Count 0.87 10^3/uL (0.1-0.8); Absolute Neutrophil Count 24.26 10^3/uL (1.2-6.7)
[2022-12-27 15:25] LABS: Platelet Count 998 10^3/uL (130-400); WBC 27.32 10^3/uL (4.4-10.8)
[2022-12-27 15:26] LABS: Diff Comment Diff Reviewed; RBC Morphology Normal
[2022-12-27 15:27] LABS: BUN 104 mg/dL (7-18)
== END 2022-12-27 18:30 | disposition home or self-care (01) ==
LOC: LBN 18:29
PROVIDERS: PCP Internal Medicine; Visit Provider Family Medicine
DX: I50.22 Chronic systolic (congestive) heart failure (principal); I87.2 Venous insufficiency (chronic) (peripheral); K92.2 Gastrointestinal hemorrhage, unspecified; E11.9 Type 2 diabetes mellitus without complications; I10 Essential (primary) hypertension; E03.9 Hypothyroidism, unspecified
CPT/HCPCS: 80053; 85025

== ENCOUNTER 2023-01-01 16:49 | Outpatient (REF) | payer SELFPAY ==
[2023-01-01 17:45] LABS: Abs Immature Grans 0.12 10^3/uL (0.0-0.06); Absolute Basophil Count 0.21 10^3/uL (0.0-0.2); Absolute Neutrophil Count 18.31 10^3/uL (1.2-6.7); Basophils % 0.9; Eosinophils % 1.5; HCT 39.1 % (36.0-46.0); HGB 12.5 g/dL (11.2-15.7); Immature Grans % 0.5; Lymphocytes % 10.7; MCH 27.9 pg (27.0-33.0); MCV 87 fL (80-95); MPV 9.8 fL (8.0-11.0); Monocytes % 6.3; Neutrophils % 80.1; RBC 4.48 10^6/uL (3.93-5.22); RDW 16.5 % (11.7-14.6); WBC 22.86 10^3/uL (4.4-10.8)
[2023-01-01 17:57] LABS: ALT 21 U/L (14-59); AST 17 U/L (15-37); Alkaline Phosphatase 81 U/L (46-116); Anion Gap 9.9 mmol/L (3-11); BUN 34 mg/dL (7-18); Bilirubin, Total 0.4 mg/dL (0.2-1.0); CO2 27.1 mmol/L (21.0-32.0); CREATININE 1.4 mg/dL (0.55-1.02); Calcium 8.9 mg/dL (8.5-10.1); Chloride 103 mmol/L (98-107); Estimated GFR 38.27 (mL/min/1.73m2); Glucose 257 mg/dL (74-106); Potassium 4.6 mmol/L (3.5-5.1); Sodium 140 mmol/L (136-145); Total Protein 6.3 g/dL (6.4-8.2)
[2023-01-01 18:03] LABS: Absolute Eosinophil Count 0.34 10^3/uL (0.0-0.7); Absolute Lymphocyte Count 2.45 10^3/uL (1.2-3.4); Absolute Monocyte Count 1.44 10^3/uL (0.1-0.8)
[2023-01-01 18:14] LABS: Diff Comment Diff Reviewed; Platelet Count 754 10^3/uL (130-400); RBC Morphology Normal
== END 2023-01-01 16:50 | disposition home or self-care (01) ==
LOC: LBN 16:49
PROVIDERS: PCP Internal Medicine; Visit Provider Physician Assistant
DX: K92.2 Gastrointestinal hemorrhage, unspecified (principal); N18.9 Chronic kidney disease, unspecified; I10 Essential (primary) hypertension; E11.9 Type 2 diabetes mellitus without complications
CPT/HCPCS: 80053; 85025

== ENCOUNTER → 2023-01-06 10:48 | Outpatient (BNVA) | payer MEDICARE, SELFPAY | PROVIDERS: PCP Internal Medicine; Referring Provider Internal Medicine; Visit Provider Surgery | DX: K92.2 Gastrointestinal hemorrhage, unspecified (principal) | CPT/HCPCS: 99202; 99214 ==

== ENCOUNTER 2023-01-06 12:00 | Outpatient (REF) | payer MEDICARE, SELFPAY ==
[2023-01-06 08:34] LABS: Abs Immature Grans 0.08 10^3/uL (0.0-0.06); Absolute Basophil Count 0.18 10^3/uL (0.0-0.2); Absolute Eosinophil Count 0.58 10^3/uL (0.0-0.7); Absolute Monocyte Count 1.06 10^3/uL (0.1-0.8); Basophils % 0.9; Eosinophils % 2.9; HCT 40.8 % (36.0-46.0); HGB 12.7 g/dL (11.2-15.7); Immature Grans % 0.4; Lymphocytes % 16.8; MCH 27.9 pg (27.0-33.0); MCHC 31.1 % (32.0-36.0); MCV 90 fL (80-95); MPV 10.1 fL (8.0-11.0); Monocytes % 5.3; Neutrophils % 73.7; Platelet Count 635 10^3/uL (130-400); RBC 4.56 10^6/uL (3.93-5.22); RDW 16.5 % (11.7-14.6); RDW-SD 53.6 fL; WBC 20.05 10^3/uL (4.4-10.8)
[2023-01-06 08:37] LABS: Absolute Lymphocyte Count 3.37 10^3/uL (1.2-3.4); Absolute Neutrophil Count 14.78 10^3/uL (1.2-6.7)
[2023-01-06 08:46] LABS: ALT 24 U/L (14-59); AST 25 U/L (15-37); Albumin 3.1 g/dL (3.4-5.0); Alkaline Phosphatase 75 U/L (46-116); Anion Gap 3.6 mmol/L (3-11); BUN 49 mg/dL (7-18); Bilirubin, Total 0.3 mg/dL (0.2-1.0); CO2 32.4 mmol/L (21.0-32.0); CREATININE 1.3 mg/dL (0.55-1.02); Calcium 9.1 mg/dL (8.5-10.1); Chloride 103 mmol/L (98-107); Estimated GFR 41.83 (mL/min/1.73m2); Glucose 121 mg/dL (74-106); Potassium 5.5 mmol/L (3.5-5.1); Sodium 139 mmol/L (136-145); Total Protein 6.6 g/dL (6.4-8.2)
== END 2023-01-06 12:01 | disposition home or self-care (01) ==
LOC: LBN 12:00
PROVIDERS: PCP Internal Medicine; Visit Provider Physician Assistant
DX: I10 Essential (primary) hypertension (principal); E11.9 Type 2 diabetes mellitus without complications; K92.1 Melena; N18.9 Chronic kidney disease, unspecified
CPT/HCPCS: 80053; 85025